=== PATIENT | female | born 1980 | race Caucasian/White ===

== ENCOUNTER 2016-10-04 21:25 | Emergency (ER) | payer SELFPAY ==
--- NOTE | 2016-10-05 01:41 | ED CLINICAL REPORT ---
Clinical Report - Physicians/Mid Levels [facility] [address] [place] [address] 10/04/2016 21:27 [id number] Time Seen: 00:30 Oct 05 2016. Arrived- By private vehicle. Historian- patient. CPT: ER phys charges level 3 plus (#999533). Up to 2.5 cm simple scalp, neck (#[id number]). HISTORY OF PRESENT ILLNESS Chief Complaint: Injury to the left middle finger. The injury happened just prior to arrival. Occurred at home. The patient sustained a laceration. Patient is experiencing moderate pain. No other injury. REVIEW OF SYSTEMS The patient sustained a laceration. No swelling, tingling, numbness, weakness or foreign body. PAST HISTORY See nurses notes. The patient's dominant hand is the right. Tetanus immunization status is unknown. Medications: None. Allergies: No Known Drug Allergy. SOCIAL HISTORY Heavy tobacco smoker (cigarette)- 1 pack per day. No alcohol use or drug use. ADDITIONAL NOTES The nursing notes have been reviewed. PHYSICAL EXAM Vital Signs: 10/04/2016 22:23 BP: 133/87. HR: 91. RR: 16. O2 saturation: 100%. Temp: 98.2 F. Pain level now: 7/10. Appearance: Alert. Patient in mild distress. Skin: Skin warm and dry. Extremities: Tip of left middle finger: moderate tenderness and deep laceration. No swelling or foreign body. No laceration involving the nail bed or nail fold, exposed bone or loss of the nail bed on the left middle finger. No wrist injury. Neuro, Vascular and Tendons: Vascular status intact. Sensation intact. Motor intact. Neuro: Oriented X 3. PROGRESS AND PROCEDURES Laceration Repair: Location: left middle finger. Length: 2.5cm. Complexity: simple (local anesthesia used and sutured). Wound depth/shape- subcutaneous and linear. Wound is clean. Distal neuro/vascular/tendon status normal. No tendon deficit or laceration. Local anesthesia provided using 0.25% Marcaine. Prepped with Hibiclens. Wound explored, cleansed, irrigated and examined to the base in bloodless field extensively with normal saline. Closure of skin: interrupted 4-0 (6 sutures). Pre-procedure time-out not completed. Post-procedure: she is stable and there are no complications. Bleeding is controlled and neuro-vascular status is intact distal to the wound. Dressing applied. Tetanus immunization given. Discussed case with health care provider. Patient/family counseled. Disposition: Discharged. Condition: stable and improved. CLINICAL IMPRESSION Single deep laceration to the left middle finger.No foreign body present or left fingernail injury. INSTRUCTIONS Elevate affected areas above chest level today until better. Protect wound and keep wound area clean. Change dressing twice daily. Keep wounds dry. You may wash wounds briefly, then dry. Apply neosporin twice daily. Sutures should be removed in seven days. Limit use of your left hand until better. Warnings: TETANUS: You were given a tetanus shot during your visit. Make a note for future reference. GENERAL WARNINGS: Return or contact your physician immediately if your condition worsens or changes unexpectedly, if not improving as expected, or if other problems arise. Prescription Medications: Hydrocodone/APAP 5mg/325mg: take 1 to 2 orally every 6 hours as needed for pain. Dispense fifteen (15). No refills. Follow-up: Follow up with your doctor in one week. Call for an appointment. Understanding of the discharge instructions verbalized by patient. (Electronically signed by Michael Cabrera MD 10/06/2016 21:31)
--- NOTE | 2016-10-05 01:41 | ED CLINICAL REPORT ---
Clinical Report - Physicians/Mid Levels [facility] [address] [place] [address] 10/04/2016 21:27 [id number] Time Seen: 00:30 Oct 05 2016. Arrived- By private vehicle. Historian- patient. CPT: ER phys charges level 3 plus (#[id number]). Up to 2.5 cm simple scalp, neck (#[id number]). HISTORY OF PRESENT ILLNESS Chief Complaint: Injury to the left middle finger. The injury happened just prior to arrival. Occurred at home. The patient sustained a laceration. Patient is experiencing moderate pain. No other injury. REVIEW OF SYSTEMS The patient sustained a laceration. No swelling, tingling, numbness, weakness or foreign body. PAST HISTORY See nurses notes. The patient's dominant hand is the right. Tetanus immunization status is unknown. Medications: None. Allergies: No Known Drug Allergy. SOCIAL HISTORY Heavy tobacco smoker (cigarette)- 1 pack per day. No alcohol use or drug use. ADDITIONAL NOTES The nursing notes have been reviewed. PHYSICAL EXAM Vital Signs: 10/04/2016 22:23 BP: 133/87. HR: 91. RR: 16. O2 saturation: 100%. Temp: 98.2 F. Pain level now: 7/10. Appearance: Alert. Patient in mild distress. Skin: Skin warm and dry. Extremities: Tip of left middle finger: moderate tenderness and deep laceration. No swelling or foreign body. No laceration involving the nail bed or nail fold, exposed bone or loss of the nail bed on the left middle finger. No wrist injury. Neuro, Vascular and Tendons: Vascular status intact. Sensation intact. Motor intact. Neuro: Oriented X 3. PROGRESS AND PROCEDURES Laceration Repair: Location: left middle finger. Length: 2.5cm. Complexity: simple (local anesthesia used and sutured). Wound depth/shape- subcutaneous and linear. Wound is clean. Distal neuro/vascular/tendon status normal. No tendon deficit or laceration. Local anesthesia provided using 0.25% Marcaine. Prepped with Hibiclens. Wound explored, cleansed, irrigated and examined to the base in bloodless field extensively with normal saline. Closure of skin: interrupted 4-0 (6 sutures). Pre-procedure time-out not completed. Post-procedure: she is stable and there are no complications. Bleeding is controlled and neuro-vascular status is intact distal to the wound. Dressing applied. Tetanus immunization given. Discussed case with health care provider. Patient/family counseled. Disposition: Discharged. Condition: stable and improved. CLINICAL IMPRESSION Single deep laceration to the left middle finger.No foreign body present or left fingernail injury. INSTRUCTIONS Elevate affected areas above chest level today until better. Protect wound and keep wound area clean. Change dressing twice daily. Keep wounds dry. You may wash wounds briefly, then dry. Apply neosporin twice daily. Sutures should be removed in seven days. Limit use of your left hand until better. Warnings: TETANUS: You were given a tetanus shot during your visit. Make a note for future reference. GENERAL WARNINGS: Return or contact your physician immediately if your condition worsens or changes unexpectedly, if not improving as expected, or if other problems arise. Prescription Medications: Hydrocodone/APAP 5mg/325mg: take 1 to 2 orally every 6 hours as needed for pain. Dispense fifteen (15). No refills. Follow-up: Follow up with your doctor in one week. Call for an appointment. Understanding of the discharge instructions verbalized by patient. (Electronically signed by Michael Cabrera MD 10/06/2016 21:31)
--- NOTE | 2016-10-05 01:41 | ED ORDER SUMMARY ---
..... Patient: MACY AGUSTIN OrderSheet [facility] VisitID: [id number] [address] [place] [address] 35y, F Registration Date/Time: 10/04/2016 ORDER SHEET Weight: 95.2 kg (stated) Allergies: No Known Drug Allergy GENERAL ORDERS: Wound Set-up: (00:10/05/2016 Stephanie REYNOLDS) (Ack 0:52 DBeyer R.N.) (1:04 DBeyer R.N.) MEDICATION ORDERS: Tdap IM 0.5 mL (NOW) (00:10/05/2016 Stephanie REYNOLDS) (0:45 DBeyer R.N.) IV FLUIDS: ORDER SHEET NOTES: [Electronically signed by Santosh Jerry R.N. (06:06 10/05/2016)] [Electronically signed by Michael Cabrera MD (21:31 10/06/2016)] [Electronically locked/signed by Santosh Jerry R.N. (06:10/05/2016)]
--- NOTE | 2016-10-05 01:41 | ED NURSING NOTES ---
Clinical Report - Nurses [facility] [address] [place] [address] 10/04/2016 21:27 Patient: MACY AGUSTIN TRIAGE Triage time 22:23. Acuity: LEVEL 4. Chief Complaint: INJURY TO THE LEFT MIDDLE FINGER. 22:28. Alert. SEPSIS SCREEN: Sepsis Screen. Negative (no infection suspected/documented). MATT COMA SCORE: Matt Coma Scale: 15- eyes open spontaneously (4); best verbal response- oriented x 4 (5); best motor response- obeys commands (6). --22:28 Jae Haywood R.N. 22:23 10/04/16. BP: 133/87. HR: 91. RR: 16. O2 saturation: 100%. Temp: 98.2 F. Pain level now: 04/07. --22:28 Jae Haywood R.N. Chief Complaint: INJURY TO LEFT HAND. --23:27 Santosh Jerry R.N. Weight: 95.2 kg stated. Height/Length: 72 inches Per Patient. BMI: 28.5. --22:27 Jae Haywood R.N. Medications None. --22:26 Jae Haywood R.N. Medication/allergy information source: the patient. --22:28 Jae Haywood R.N. Allergies No Known Drug Allergy. --22:26 Jae Haywood R.N. History Arrived by private vehicle. Historian: patient. Accompanied by friend. Primary physician (None). This occurred (1 1/2 hours ago). Occurred at home. She sustained a laceration from a broken glass. 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 PAST MEDICAL HX: Tetanus status: more than 5 years ago. Immunizations: up-to-date. Last normal menstrual period was 4 weeks ago. SOCIAL HX: Current every day heavy tobacco smoker- 1 pack per day. No alcohol use or drug use. No infectious disease exposure. ABUSE ASSESSMENT: No report of abuse. FALL RISK ASSESSMENT: Fall risk assessment completed. No fall risk identified. NUTRITIONAL RISK ASSESSMENT: The nutritional risk assessment revealed no deficiencies. FUNCTIONAL ASSESSMENT: Functional assessment: no impairments noted. LEARNING NEEDS ASSESSMENT: The learning needs assessment revealed no barriers. SKIN INTEGRITY ASSESSMENT: Skin integrity risk assessment completed. No skin integrity risk identified. --22:28 Jae Haywood R.N. The patient sustained a laceration. ( 1.5cm lac pt was washing dishes and a dish broke, last tetanus was 8 years ago). --23:27 Santosh Jerry R.N. ADDITIONAL SURGERIES: . --22:27 Jae Haywood R.N. Interventions ID band on patient. --22:28 Jae Haywood R.N. PHYSICAL ASSESSMENT EXTREMITIES: Tip of left index finger: 1.5 cm laceration with controlled bleeding. SKIN: Skin is warm and dry. --23:28 Santosh Jerry R.N. NURSING PROGRESS NOTES Reassurance given. Patient not gowned. Call light placed in reach. Side rails up. Bed placed in lowest position. --23:28 Santosh Jerry R.N. 00:45 10/05/2016 TDAP IM 0.5 mL given. (Lot#: [id number], expiration date: 06/26/2018, Blasting Worker: sanofi pasteur). Given in the left deltoid. Allergies verified and confirmed 5 rights. Vaccine information statement provided to the patient. --00:45 Santosh Jerry R.N. ( Pt resting in no obvious distress). --00:53 Santosh Jerry R.N. 00:53 10/05/16. HR: 89. O2 saturation: 100%. --00:53 Santosh Jerry R.N. DISPOSITION / DISCHARGE Departure time: 01:57 Oct 05 2016. Condition at departure: improved. No learning barriers present. Discharge instructions provided and reviewed with the patient. Reviewed warnings. Reviewed medication(s). Patient verbalized understanding. Written instructions provided in Hebrew. The patient was discharged by the physician. ( wound cleaned, dressing applied vuia tube gauze, clean and dry on discharge. Pt verbalized understanding of discharge instructions and follow up care.). --01:58 Santosh Jerry R.N. 01:57 01/07/17. BP: 110/67. HR: 81. RR: 20. O2 saturation: 99%. Temp: 98.5 F. Pain level now 0/10. --01:58 Santosh Jerry R.N. Locked/Released at 10/05/2016 6:06 by Santosh Jerry R.N.
--- NOTE | 2016-10-05 01:41 | ED NURSING NOTES ---
Clinical Report - Nurses [facility] [address] [place] [address] 10/04/2016 21:27 Patient: MACY AGUSTIN TRIAGE Triage time 22:23. Acuity: LEVEL 4. Chief Complaint: INJURY TO THE LEFT MIDDLE FINGER. 22:28. Alert. SEPSIS SCREEN: Sepsis Screen. Negative (no infection suspected/documented). MATT COMA SCORE: Matt Coma Scale: 15- eyes open spontaneously (4); best verbal response- oriented x 4 (5); best motor response- obeys commands (6). --22:28 Jae Haywood R.N. 22:23 10/04/16. BP: 133/87. HR: 91. RR: 16. O2 saturation: 100%. Temp: 98.2 F. Pain level now: 04/07. --22:28 Jae Haywood R.N. Chief Complaint: INJURY TO LEFT HAND. --23:27 Santosh Jerry R.N. Weight: 95.2 kg stated. Height/Length: 72 inches Per Patient. BMI: 28.5. --22:27 Jae Haywood R.N. Medications None. --22:26 Jae Haywood R.N. Medication/allergy information source: the patient. --22:28 Jae Haywood R.N. Allergies No Known Drug Allergy. --22:26 Jae Haywood R.N. History Arrived by private vehicle. Historian: patient. Accompanied by friend. Primary physician (None). This occurred (1 1/2 hours ago). Occurred at home. She sustained a laceration from a broken glass. 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 PAST MEDICAL HX: Tetanus status: more than 5 years ago. Immunizations: up-to-date. Last normal menstrual period was 4 weeks ago. SOCIAL HX: Current every day heavy tobacco smoker- 1 pack per day. No alcohol use or drug use. No infectious disease exposure. ABUSE ASSESSMENT: No report of abuse. FALL RISK ASSESSMENT: Fall risk assessment completed. No fall risk identified. NUTRITIONAL RISK ASSESSMENT: The nutritional risk assessment revealed no deficiencies. FUNCTIONAL ASSESSMENT: Functional assessment: no impairments noted. LEARNING NEEDS ASSESSMENT: The learning needs assessment revealed no barriers. SKIN INTEGRITY ASSESSMENT: Skin integrity risk assessment completed. No skin integrity risk identified. --22:28 Jae Haywood R.N. The patient sustained a laceration. ( 1.5cm lac pt was washing dishes and a dish broke, last tetanus was 8 years ago). --23:27 Santosh Jerry R.N. ADDITIONAL SURGERIES: . --22:27 Jae Haywood R.N. Interventions ID band on patient. --22:28 Jae Haywood R.N. PHYSICAL ASSESSMENT EXTREMITIES: Tip of left index finger: 1.5 cm laceration with controlled bleeding. SKIN: Skin is warm and dry. --23:28 Santosh Jerry R.N. NURSING PROGRESS NOTES Reassurance given. Patient not gowned. Call light placed in reach. Side rails up. Bed placed in lowest position. --23:28 Santosh Jerry R.N. 00:45 10/05/2016 TDAP IM 0.5 mL given. (Lot#: [id number], expiration date: 06/26/2018, Lead Sharepoint Developer: sanofi pasteur). Given in the left deltoid. Allergies verified and confirmed 5 rights. Vaccine information statement provided to the patient. --00:45 Santosh Jerry R.N. ( Pt resting in no obvious distress). --00:53 Santosh Jerry R.N. 00:53 10/05/16. HR: 89. O2 saturation: 100%. --00:53 Santosh Jerry R.N. DISPOSITION / DISCHARGE Departure time: 01:57 Oct 05 2016. Condition at departure: improved. No learning barriers present. Discharge instructions provided and reviewed with the patient. Reviewed warnings. Reviewed medication(s). Patient verbalized understanding. Written instructions provided in Spanish. The patient was discharged by the physician. ( wound cleaned, dressing applied vuia tube gauze, clean and dry on discharge. Pt verbalized understanding of discharge instructions and follow up care.). --01:58 Santosh Jerry R.N. 01:57 01/07/17. BP: 110/67. HR: 81. RR: 20. O2 saturation: 99%. Temp: 98.5 F. Pain level now 0/10. --01:58 Santosh Jerry R.N. Locked/Released at 10/05/2016 6:06 by Santosh Jerry R.N.
--- NOTE | 2016-10-05 01:41 | ED ORDER SUMMARY ---
..... Patient: MACY AGUSTIN OrderSheet [facility] VisitID: [id number] [address] [place] [address] 35y, F Registration Date/Time: 10/04/2016 ORDER SHEET Weight: 95.2 kg (stated) Allergies: No Known Drug Allergy GENERAL ORDERS: Wound Set-up: (00:10/05/2016 Stephanie REYNOLDS) (Ack 0:52 DBeyer R.N.) (1:04 DBeyer R.N.) MEDICATION ORDERS: Tdap IM 0.5 mL (NOW) (00:10/05/2016 Stephanie REYNOLDS) (0:45 DBeyer R.N.) IV FLUIDS: ORDER SHEET NOTES: [Electronically signed by Santosh Jerry R.N. (06:06 10/05/2016)] [Electronically signed by Michael Cabrera MD (21:31 10/06/2016)] [Electronically locked/signed by Santosh Jerry R.N. (06:10/05/2016)]
--- NOTE | 2016-10-06 21:31 | ED MAR SUMMARY ---
..... Medication Administration Record [facility] [address] [place] [address] Patient: MACY AGUSTIN Visit ID: [id number] 35y, F Weight: 95.2 kg Height/Length: 72 in BMI: 28.5 ALLERGIES: No Known Drug Allergy Given 00:45 10/05/2016 Santosh Jerry R.N. Medication Administered: TDAP [IM], Dose: 0.5 mL IM. Medication Ordered: Tdap IM 0.5 mL (NOW).
--- NOTE | 2016-10-06 21:31 | ED DISCHARGE INSTRUCTIONS ---
Patient: MACY AGUSTIN General Instructions [facility] VisitID: [id number] [place] [address] 35y, F Registration Date/Time: 10/04/2016 Single deep laceration to the left middle finger.No foreign body present or left fingernail injury. INSTRUCTIONS Elevate affected areas above chest level today until better. Protect wound and keep wound area clean. Change dressing twice daily. Keep wounds dry. You may wash wounds briefly, then dry. Apply neosporin twice daily. Sutures should be removed in seven days. Limit use of your left hand until better. Warnings: TETANUS: You were given a tetanus shot during your visit. Make a note for future reference. GENERAL WARNINGS: Return or contact your physician immediately if your condition worsens or changes unexpectedly, if not improving as expected, or if other problems arise. Prescription Medications: Hydrocodone/APAP 5mg/325mg: take 1 to 2 orally every 6 hours as needed for pain. Dispense fifteen (15). No refills. Follow-up: Follow up with your doctor in one week. Call for an appointment. Understanding of the discharge instructions verbalized by patient. ADDITIONAL INFORMATION Laceration (All Closures) Alaceration is a cut through the skin. This will usually require stitches (sutures) or anjel if it is deep. Minor cuts may be treated with a surgical tape closure orskin glue. Home care The following guidelines will help you care for your laceration at home: Extremity, face, or trunk wounds Keep the wound clean and dry. If a bandage was applied and it becomes wet or dirty, replace it. Otherwise, leave it in place for the first 24 hours. If stitches or anjel were used, clean the wound daily. After removing the bandage, wash the area with soap and water. Use a wet cotton swab to loosen and remove any blood or crust that forms. The doctor may prescribe an antibiotic cream or ointment to prevent infection. Do not stop taking this medication until you have finished the prescribed course or the doctor tells you to stop. The doctor may also prescribe medications for pain. Follow the doctors instructions for taking these medications. You may remove the bandage to shower as usual after the first 24 hours, but do not soak the area in water (no swimming) until the stitches or anjel are removed. If surgical tape was used, keep the area clean and dry. If it becomes wet, blot it dry with a towel. If skin glue was used, do not scratch, rub, or pick at the adhesive film. Do not place tape directly over the film. Do not apply liquid, ointment, or creams to the wound while the film is in place. Do not clean the wound with peroxide and do not apply ointments. Avoid activities that cause heavy sweating until the film has fallen off. Protect the wound from prolonged exposure to sunlight or tanning lamps. You may shower as usual but do not soak the wound in water (no baths or swimming). The film will fall off by itself in 510 days. Scalp wounds During the first two days, you may carefully rinse your hair in the shower to remove blood, glass or dirt particles. After two days, you may shower and shampoo your hair normally. Do not soak your scalp in the tub or go swimming until the stitches or anjel have been removed. Talk with your doctor before applying any antibiotic ointment to the wound. Mouth wounds Eat soft foods to reduce pain. If the cut is inside of your mouth, clean by rinsing after each meal and at bedtime with a mixture of equal parts water and hydrogen peroxide (do not swallow!). Or, you can use a cotton swab to directly apply hydrogen peroxide onto the cut. Mouth wounds can be painful when eating. You may use an nuty-eon-sdniwri local numbing solution for pain relief. If this is not available, you may use any numbing solution for teething babies. You may apply this directly to the sores with a cotton-tip swab or with your finger. Follow-up care Follow up with your health care provider. Most skin wounds heal within ten days. Mouth and facial wounds heal within five days. However, even with proper treatment, a wound infection may sometimes occur. Therefore, you should check the wound daily for signs of infection listed below. Stitches should be removed from the face within five days; stitches and anjel should be removed from other parts of the body within 714 days. If dissolving stitches were used in the mouth, these will fall out or dissolve without the need for removal. If tape closures were used, remove them yourself if they have not fallen off after 7 days. Ifskin glue was used, the film will fall off by itself in 510 days. When to seek medical care Get prompt medical attention if any of these occur: Bleeding not controlled by direct pressure Signs of infection, including increasing pain in the wound, increasing wound redness or swelling, or pus coming from the wound Fever of 100.4F (38C) or higher, or as directed by your health care provider Stitches or anjel come apart or fall out or surgical tape falls off before 7 days Wound edges re-open You have been given the following additional information: Laceration, All Limit use of your left hand until better. (Electronically signed by Michael Cabrera MD 10/06/2016 21:31)
--- NOTE | 2016-10-06 21:31 | ED MED RECONCILIATION SUMMARY ---
Patient: MACY AGUSTIN Medication Reconciliation Report [facility] VisitID: [id number] [address] [place] [address] 35y, F Registration Date/Time: 10/04/2016 Weight: 95.2 kg Height/Length: 72 in. BMI: 28.5 ALLERGIES: No Known Drug Allergy The patient's Home Medications are listed below: NONE. The source(s) of the original Home Medication information: patient The following Medications were given to the patient in the Emergency Department: TDAP [IM] IM 0.5 mL, administered: 10/05/2016 12:45:00 AM The following Medications were prescribed to the patient: Hydrocodone/APAP 5mg/325mg: take 1 to 2 orally every 6 hours as needed for pain. Dispense fifteen (15). No refills. -- Michael Cabrera MD
--- NOTE | 2016-10-06 21:31 | ED MAR SUMMARY ---
..... Medication Administration Record [facility] [address] [place] [address] Patient: MACY AGUSTIN Visit ID: [id number] 35y, F Weight: 95.2 kg Height/Length: 72 in BMI: 28.5 ALLERGIES: No Known Drug Allergy Given 00:45 10/05/2016 Santosh Jerry R.N. Medication Administered: TDAP [IM], Dose: 0.5 mL IM. Medication Ordered: Tdap IM 0.5 mL (NOW).
--- NOTE | 2016-10-06 21:31 | ED MED RECONCILIATION SUMMARY ---
Patient: MACY AGUSTIN Medication Reconciliation Report [facility] VisitID: [id number] [address] [place] [address] 35y, F Registration Date/Time: 10/04/2016 Weight: 95.2 kg Height/Length: 72 in. BMI: 28.5 ALLERGIES: No Known Drug Allergy The patient's Home Medications are listed below: NONE. The source(s) of the original Home Medication information: patient The following Medications were given to the patient in the Emergency Department: TDAP [IM] IM 0.5 mL, administered: 10/05/2016 12:45:00 AM The following Medications were prescribed to the patient: Hydrocodone/APAP 5mg/325mg: take 1 to 2 orally every 6 hours as needed for pain. Dispense fifteen (15). No refills. -- Michael Cabrera MD
== END 2016-10-05 01:50 | disposition home or self-care (01) ==
LOC: ED SRH 21:25
DX: S61.213A Laceration without foreign body of left middle finger without damage to nail, initial encounter (principal); W25.XXXA Contact with sharp glass, initial encounter; Y93.G1 Activity, food preparation and clean up; Y92.009 Unspecified place in unspecified non-institutional (private) residence as the place of occurrence of the external cause; Y99.9 Unspecified external cause status; Z23 Encounter for immunization; F17.210 Nicotine dependence, cigarettes, uncomplicated